=== PATIENT | female | born 1955 | race Caucasian/White ===

== ENCOUNTER 2016-10-30 01:45 | Emergency (ER) | payer BC ==
[~2016-10-30] VITALS: Ht 172.7 cm; Wt 86.4 kg
[~2016-10-30 01:45] MED LIST: KEFLEX500 MG PO; NORCO 5/3251 TABLET PO; PRILOSEC40 MG PO; TRAMADOL HCL50 MG PO; ZOCOR20 MG PO
[2016-10-30 02:30] LABS: HEMATOCRIT 40.8 % (36.0-46.0); MCH 32.2 PG (29.0-34.0); MCHC 34.1 G/DL (30.0-36.0); MCV 94.4 FL (83-99); MEAN PLAT.VOLUME 10.6 uM^3 (9.5-12.4); PLATELET COUNT 188 K/uL (156-360); RBC DIS.WIDTH-CV 12.9 % (11.8-14.6); RBC DIS.WIDTH-SD 43.1 % (39-53); RED BLOOD COUNT 4.32 M/uL (3.80-5.20); WHITE BLOOD COUNT 6.1 K/uL (4.1-10.2)
[2016-10-30 02:41] LABS: CHLORIDE 106 mEq/L (99-109); POTASSIUM 3.2 mEq/L (3.7-5.4); SODIUM 141 mEq/L (136-147)
[2016-10-30 02:44] LABS: GLUCOSE 128 mg/dL (70-99)
[2016-10-30 02:45] LABS: ANION GAP 14 MEQ/L (2-14); TOTAL BILIRUBIN 1.1 mg/dL (0.0-1.0)
[2016-10-30 02:47] LABS: ALKALINE PHOSPHATASE 93 IU/L (3-129); GFR ESTIMATE (CALCULATED) > 59 mL/min/
[2016-10-30 02:48] LABS: UREA NITROGEN (BUN) 18 mg/dL (9-23)
[2016-10-30 02:51] LABS: LIPASE 12 U/L (1.0-51.0)
[2016-10-30 03:35] LABS: ADD MIUA? YES; BILIRUBIN NEGATIVE; BLOOD LARGE; COLOR YELLOW ((YELLOW)); GLUCOSE (STRIP) NEGATIVE; KETONES >=80; LEUKOCYTES NEGATIVE; NITRITE NEGATIVE; PH, URINE 6.5 (5-8); PROTEIN (STRIP) 30; SPECIFIC GRAVITY 1.024 (1.000-1.030); UROBILINOGEN 0.2 MG/DL (0.2-1.0)
[2016-10-30 03:56] LABS: BACTERIA RARE; CASTS NONE SEEN /LPF; CRYSTALS NONE SEEN; EPITHELIAL CELLS RARE; MUCUS 2+; RED BLOOD CELLS 40-50 /HPF (0-5); WHITE BLOOD CELLS 0-5 /HPF (0-5)
[2016-10-30] MEDS ORDERED: FLOMAX0.4 MG PO (04:01)
[2016-10-30] MEDS ORDERED: MOTRIN800 MG PO (04:01)
[2016-10-30] MEDS ORDERED: NORCO 7.5/321 TABLET PO (04:01)
[2016-10-30] MEDS ORDERED: ZOFRAN ODT4 MG PO (04:01)
[2016-10-30 05:19] VITALS: BP 131/58
== END 2016-10-30 05:20 | disposition home or self-care (01) ==
LOC: EME 01:45
PROVIDERS: Physician Assistant
DX: N20.1 Calculus of ureter (principal); E86.0 Dehydration; E87.6 Hypokalemia; Z87.442 Personal history of urinary calculi; E78.5 Hyperlipidemia, unspecified
CPT/HCPCS: 74176; 80053; 81003; 83690; 85027; 99281; 99285; J1885; J2405; J3010

== ENCOUNTER 2016-11-01 13:03 | Day surgery (SDC) | payer BC ==
[~2016-11-01] VITALS: Ht 172.7 cm; Wt 96.4 kg
[~2016-11-01 13:03] MED LIST changes: +FLOMAX0.4 MG PO; +MOTRIN800 MG PO; +NORCO 7.5/321 TABLET PO; +ZOFRAN ODT4 MG PO
[2016-11-01 13:28] VITALS: BP 37/6
[2016-11-01 16:33] VITALS: BP 161/91
[2016-11-01 17:19] VITALS: BP 139/72
== END 2016-11-01 17:47 | disposition home or self-care (01) ==
LOC: SDC 13:03
DX: N20.1 Calculus of ureter (principal); E78.5 Hyperlipidemia, unspecified; J44.9 Chronic obstructive pulmonary disease, unspecified; K21.9 Gastro-esophageal reflux disease without esophagitis; Z87.891 Personal history of nicotine dependence; Z80.0 Family history of malignant neoplasm of digestive organs; Z80.8 Family history of malignant neoplasm of other organs or systems
CPT/HCPCS: 74420; 84132; 93005; C1894; J0690; J2405; J3010; J7050

== ENCOUNTER 2016-11-04 23:14 | Emergency (ER) | payer BC ==
[~2016-11-04] VITALS: Ht 172.7 cm; Wt 89.6 kg
[2016-11-04] MEDS ORDERED: HYDROMORPHONE HC2 MG PO (23:42)
[2016-11-04] MEDS ORDERED: CIPRO500 MG PO (23:43)
[2016-11-04 23:54] LABS: HEMATOCRIT 38.2 % (36.0-46.0); MCH 32.5 PG (29.0-34.0); MCHC 34.8 G/DL (30.0-36.0); MCV 93.4 FL (83-99); MEAN PLAT.VOLUME 10.7 uM^3 (9.5-12.4); PLATELET COUNT 206 K/uL (156-360); RBC DIS.WIDTH-CV 12.4 % (11.8-14.6); RBC DIS.WIDTH-SD 41.3 % (39-53); RED BLOOD COUNT 4.09 M/uL (3.80-5.20); WHITE BLOOD COUNT 4.3 K/uL (4.1-10.2)
[2016-11-05 00:03] LABS: CHLORIDE 107 mEq/L (99-109); POTASSIUM 3.3 mEq/L (3.7-5.4); SODIUM 143 mEq/L (136-147)
[2016-11-05 00:04] LABS: GLUCOSE 115 mg/dL (70-99)
[2016-11-05 00:06] LABS: ANION GAP 15 MEQ/L (2-14)
[2016-11-05 00:08] LABS: GFR ESTIMATE (CALCULATED) > 59 mL/min/
[2016-11-05 00:09] LABS: UREA NITROGEN (BUN) 16 mg/dL (9-23)
[2016-11-05 01:44] LABS: ADD MIUA? YES; BILIRUBIN NEGATIVE; BLOOD LARGE; GLUCOSE (STRIP) NEGATIVE; KETONES 15; LEUKOCYTES MODERATE; NITRITE NEGATIVE; PROTEIN (STRIP) 100
[2016-11-05 01:45] LABS: COLOR RED ((YELLOW))
[2016-11-05 02:00] LABS: RED BLOOD CELLS TNTC /HPF (0-5)
[2016-11-05 02:01] LABS: BACTERIA 1+; CASTS NONE SEEN /LPF; CRYSTALS NONE SEEN; EPITHELIAL CELLS RARE; MUCUS NONE SEEN; UCUL ADDED? NO
[2016-11-05 02:08] LABS: SPECIFIC GRAVITY 1.009 (1.000-1.030)
[2016-11-05] MEDS ORDERED: CIPRO500 MG PO (02:08)
[2016-11-05] MEDS ORDERED: LIDOCAINE700 MG TD (02:08)
[2016-11-05 02:46] VITALS: BP 139/75
== END 2016-11-05 02:49 | disposition home or self-care (01) ==
LOC: EME → EDBD 23:14 → EME 23:14
PROVIDERS: Emergency Medicine
DX: N39.0 Urinary tract infection, site not specified (principal); G89.18 Other acute postprocedural pain; R10.9 Unspecified abdominal pain; Z87.442 Personal history of urinary calculi; E78.5 Hyperlipidemia, unspecified; Z87.891 Personal history of nicotine dependence
CPT/HCPCS: 74176; 80048; 81003; 85027; 99281; 99285; J1885; J2270; J2405; J7030

== ENCOUNTER → 2017-04-02 | Outpatient (CLI) | payer BC ==
[~2017-04-02] MED LIST changes: +CIPRO500 MG PO; +HYDROMORPHONE HC2 MG PO; +LIDOCAINE700 MG TD
== END | disposition home or self-care (01) ==
LOC: NUC 10:47
DX: M47.897 Other spondylosis, lumbosacral region (principal)
CPT/HCPCS: 78306; 78315; A9503